=== PATIENT | male | born 1980 | race Caucasian/White ===

== ENCOUNTER 2016-02-25 09:21 | Emergency (ER) | payer OTHER ==
[~2016-02-25] VITALS: Ht 180.3 cm; Wt 74.8 kg
[~2016-02-25 09:21] MED LIST: ANTIBIOTIC O500 U/GM TP; BACTRIM DS 8001 TA1 PO; BENADRYL25 MG PO; CIPROFLOXACIN500 MG PO; CLEOCIN150 MG PO; CLINDAMYCIN HC300 MG PO; EES400 MG PO; FIORICET 325 MG1 TAB PO; FLEXERIL10 MG PO; HYDROCODONE BIT1 T11 PO; LITHIUM CARBON600 MG PO; LOVENOX30 MG/0.3; MEDROL DOSEPAK4 MG PO; NALTREXONE50 MG PO; NKHM; Orphenadrine C100 MG PO; PEPCID40 MG PO; SEPTRA DS 800 M1 TAB PO; SUBOXONE 8 MG-21 TA1 SL; TOBREX OPHTH S2.5 ML OPH; TRAMADOL HCL50 MG PO; TRIMOX500 MG PO; ULTRAM50 MG PO; VICODIN 5/500 505 MG PO; ZITHROMAX Z PA250 MG PO; ZOFRAN ODT4 MG SL; ZOFRAN4 MG PO; ZOLOFT50 MG PO
[2016-02-25 09:30] VITALS: BP 138/92
== END 2016-02-25 09:44 | disposition home or self-care (01) ==
LOC: ED 09:21
DX: S60.221A Contusion of right hand, initial encounter (principal); F17.200 Nicotine dependence, unspecified, uncomplicated; Z98.890 Other specified postprocedural states; Z88.6 Allergy status to analgesic agent; Z88.1 Allergy status to other antibiotic agents; Z88.8 Allergy status to other drugs, medicaments and biological substances; Z88.0 Allergy status to penicillin; Y04.0XXA Assault by unarmed brawl or fight, initial encounter; Y93.89 Activity, other specified; Y92.89 Other specified places as the place of occurrence of the external cause; Y99.9 Unspecified external cause status

== ENCOUNTER 2016-03-17 10:44 | Emergency (ER) | payer OTHER ==
[2016-03-17 10:47] VITALS: BP 138/80
[2016-03-17] MEDS ORDERED: ZITHROMAX250 MG PO (11:19)
[2016-03-17] MEDS ORDERED: ZYRTEC10 MG PO (11:19)
== END 2016-03-17 11:51 | disposition home or self-care (01) ==
LOC: ED 10:44
DX: J01.40 Acute pansinusitis, unspecified (principal); J02.9 Acute pharyngitis, unspecified; F17.200 Nicotine dependence, unspecified, uncomplicated; Z98.890 Other specified postprocedural states; Z88.0 Allergy status to penicillin; Z88.6 Allergy status to analgesic agent; Z88.1 Allergy status to other antibiotic agents; Z88.8 Allergy status to other drugs, medicaments and biological substances

== ENCOUNTER 2016-07-22 21:00 | Emergency (ER) | payer OTHER ==
[~2016-07-22] VITALS: Ht 180.3 cm; Wt 76.7 kg
[~2016-07-22 21:00] MED LIST changes: +ZITHROMAX250 MG PO; +ZYRTEC10 MG PO
[2016-07-22] MEDS ORDERED: BACTRIM DS 8001 TA1 PO (22:28)
[2016-07-23 00:11] VITALS: BP 136/84
== END 2016-07-23 00:54 | disposition home or self-care (01) ==
LOC: ED 21:00
DX: L03.116 Cellulitis of left lower limb (principal); F17.200 Nicotine dependence, unspecified, uncomplicated; Z79.899 Other long term (current) drug therapy; Z88.0 Allergy status to penicillin; Z88.6 Allergy status to analgesic agent; Z88.8 Allergy status to other drugs, medicaments and biological substances; Z88.1 Allergy status to other antibiotic agents

== ENCOUNTER 2016-11-05 19:14 | Emergency (ER) | payer SELFPAY ==
[~2016-11-05] VITALS: Ht 175.2 cm; Wt 70.3 kg
[2016-11-05 19:20] VITALS: BP 145/82
== END 2016-11-05 21:49 | disposition home or self-care (01) ==
LOC: ED 19:14
DX: S60.221A Contusion of right hand, initial encounter (principal); F17.200 Nicotine dependence, unspecified, uncomplicated; Z88.0 Allergy status to penicillin; Z88.6 Allergy status to analgesic agent; Z88.1 Allergy status to other antibiotic agents; Z88.8 Allergy status to other drugs, medicaments and biological substances; Y04.0XXA Assault by unarmed brawl or fight, initial encounter; Y93.89 Activity, other specified; Y92.89 Other specified places as the place of occurrence of the external cause; Y99.8 Other external cause status

== ENCOUNTER 2017-01-21 20:45 | Emergency (ER) | payer SELFPAY ==
[~2017-01-21] VITALS: Ht 175.2 cm; Wt 68.0 kg
[2017-01-21 21:02] VITALS: BP 135/108
== END 2017-01-21 22:45 | disposition home or self-care (01) ==
LOC: ED 20:45
DX: M23.91 Unspecified internal derangement of right knee (principal); F17.200 Nicotine dependence, unspecified, uncomplicated; Z98.890 Other specified postprocedural states; Z88.0 Allergy status to penicillin; Z88.6 Allergy status to analgesic agent; Z88.8 Allergy status to other drugs, medicaments and biological substances; Z88.1 Allergy status to other antibiotic agents; X58.XXXA Exposure to other specified factors, initial encounter; Y93.72 Activity, wrestling; Y92.89 Other specified places as the place of occurrence of the external cause; Y99.9 Unspecified external cause status

== ENCOUNTER 2017-08-07 10:20 | Emergency (ER) | payer OTHER ==
[~2017-08-07] VITALS: Ht 180.3 cm; Wt 63.5 kg
[2017-08-07 12:36] LABS: BASO % 0.4 % (0.0-1.0); EOS # 0.1 10*3/uL (0.0-0.4); EOS % 0.5 % (1.0-4.0); HEMATOCRIT 50.4 % (42.0-52.0); HEMOGLOBIN 16.8 g/dl (14.0-18.0); LYMPH # 1.7 10*3/uL (1.3-4.4); LYMPH % 17.2 % (27.0-41.0); MEAN CELL VOLUME 96.2 fl (80.0-94.0); MEAN CORPUSCULAR HGB 32.1 pg (27.0-31.0); MEAN CORPUSCULAR HGB CONC 33.3 g/dl (33.0-37.0); MEAN PLATELET VOLUME 11.5 fl (9.6-12.3); MONO # 0.7 10*3/uL (0.1-1.0); MONO % 7.5 % (3.0-9.0); NEUT # 7.2 10*3/uL (2.3-7.9); NEUT % 74.1 % (47.0-73.0); PLATELET COUNT AUTOMATED 154 10*3/uL (130-400); RED BLOOD COUNT 5.24 10*6/uL (4.50-5.90); RED CELL DISTRI WIDTH 12.1 % (0-14.5); WHITE BLOOD COUNT 9.7 10*3/uL (4.8-10.8)
[2017-08-07 12:54] LABS: ALBUMIN 4.2 gm/dl (3.1-4.5); ALKALINE PHOSPHATASE 132 U/L (45-117); BUN 9 mg/dl (7-24); CHLORIDE 106 mmol/L (98-107); CREATININE 0.86 mg/dL (0.70-1.30); SGOT/AST 170 IU/L (3-35); SGPT/ALT 205 U/L (12-78); SODIUM 141 mmol/L (136-145); TOTAL PROTEIN 8.4 gm/dL (6.4-8.2)
[2017-08-07 12:55] LABS: TROPONIN I < 0.015 ng/ml (<0.045)
[2017-08-07 14:21] VITALS: BP 118/89
[2017-08-07] MEDS ORDERED: ROBAXIN500 M1 PO ×2 (14:44→14:45)
== END 2017-08-07 14:43 ==
LOC: ED 10:20
PROVIDERS: Physician Assistant
DX: S13.8XXA Sprain of joints and ligaments of other parts of neck, initial encounter (principal); M54.6 Pain in thoracic spine; Z88.0 Allergy status to penicillin; Z88.6 Allergy status to analgesic agent; Z88.1 Allergy status to other antibiotic agents; Z88.8 Allergy status to other drugs, medicaments and biological substances; Z98.890 Other specified postprocedural states; W10.9XXA Fall (on) (from) unspecified stairs and steps, initial encounter; Y93.89 Activity, other specified; Y92.89 Other specified places as the place of occurrence of the external cause; Y99.9 Unspecified external cause status

== ENCOUNTER 2018-02-19 02:12 | Emergency (ER) | payer OTHER ==
[~2018-02-19] VITALS: Ht 180.3 cm; Wt 81.6 kg
[~2018-02-19 02:12] MED LIST changes: +ROBAXIN500 M1 PO
[2018-02-19 02:14] VITALS: BP 148/96
[2018-02-19] MEDS ORDERED: BUSPIRONE HCL15 MG PO (02:20)
== END 2018-02-19 03:14 | disposition home or self-care (01) ==
LOC: ED 02:12
DX: S60.221A Contusion of right hand, initial encounter (principal); Z88.0 Allergy status to penicillin; Z88.6 Allergy status to analgesic agent; Z88.1 Allergy status to other antibiotic agents; Z88.8 Allergy status to other drugs, medicaments and biological substances; W22.8XXA Striking against or struck by other objects, initial encounter; Y93.89 Activity, other specified; Y92.89 Other specified places as the place of occurrence of the external cause; Y99.8 Other external cause status

== ENCOUNTER 2018-02-24 11:16 | Emergency (ER) | payer OTHER ==
[~2018-02-24] VITALS: Ht 180.3 cm; Wt 77.1 kg
[~2018-02-24 11:16] MED LIST changes: +BUSPIRONE HCL15 MG PO
[2018-02-24 11:17] VITALS: BP 154/89
[2018-02-24 11:56] LABS: BILIRUBIN NEGATIVE (NEGATIVE); BLOOD NEGATIVE (NEGATIVE); CLARITY CLEAR (CLEAR); COLOR YELLOW (YELLOW); GLUCOSE NEGATIVE (NEGATIVE); KETONE NEGATIVE (NEGATIVE); LEUKO ESTERASE NEGATIVE (NEGATIVE); NITRITE NEGATIVE (NEGATIVE); UROBILINOGEN 0.2 E.U./dl (0.2-1.0)
[2018-02-24 12:15] LABS: EPITHELIAL CELLS 0-2; MUCOUS 1+; WBC 0-2 wbc/hpf (0-5)
[2018-02-24] MEDS ORDERED: ZITHROMAX250 MG PO (12:43)
== END 2018-02-24 12:57 | disposition home or self-care (01) ==
LOC: ED 11:16
PROVIDERS: Nurse Practitioner Family
DX: H66.91 Otitis media, unspecified, right ear (principal); H61.21 Impacted cerumen, right ear; Z11.3 Encounter for screening for infections with a predominantly sexual mode of transmission; R30.9 Painful micturition, unspecified; Z88.0 Allergy status to penicillin; Z88.6 Allergy status to analgesic agent; Z88.8 Allergy status to other drugs, medicaments and biological substances; Z88.1 Allergy status to other antibiotic agents; Z79.899 Other long term (current) drug therapy

== ENCOUNTER 2018-06-24 15:03 | Inpatient (IN) | payer SELFPAY ==
[~2018-06-24] VITALS: Ht 180.3 cm; Wt 66.9 kg
--- NOTE | ~2018-06-24 | EKG ---
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
[2018-06-24 15:04] VITALS: BP 158/98
[2018-06-24 15:41] LABS: BASO % 0.3 % (0.0-1.0); EOS # 0.1 10*3/uL (0.0-0.4); EOS % 0.6 % (1.0-4.0); HEMATOCRIT 44.9 % (42.0-52.0); HEMOGLOBIN 15.5 g/dl (14.0-18.0); LYMPH # 1.7 10*3/uL (1.3-4.4); LYMPH % 14.7 % (27.0-41.0); MEAN CELL VOLUME 94.7 fl (80.0-94.0); MEAN CORPUSCULAR HGB 32.7 pg (27.0-31.0); MEAN CORPUSCULAR HGB CONC 34.5 g/dl (33.0-37.0); MEAN PLATELET VOLUME 11.5 fl (9.6-12.3); MONO # 1.4 10*3/uL (0.1-1.0); MONO % 11.8 % (3.0-9.0); NEUT # 8.5 10*3/uL (2.3-7.9); NEUT % 72.4 % (47.0-73.0); PLATELET COUNT AUTOMATED 199 10*3/uL (130-400); RED BLOOD COUNT 4.74 10*6/uL (4.50-5.90); RED CELL DISTRI WIDTH 11.9 % (0-14.5); WHITE BLOOD COUNT 11.8 10*3/uL (4.8-10.8)
--- NOTE | 2018-06-24 15:51 | NUR ---
PT STATES FEELING ALOT BETTER AFTER ATIVAN.
[2018-06-24 16:32] LABS: INTERNATIONAL NORM RATIO 1.1 (2.0-3.5)
[2018-06-24 16:38] LABS: ALKALINE PHOSPHATASE 75 U/L (45-117); BUN 7 mg/dl (7-24); CHLORIDE 109 mmol/L (98-107); CREATININE 1.03 mg/dL (0.70-1.30); POTASSIUM 3.5 mmol/L (3.5-5.1); SGOT/AST 23 IU/L (3-35); SGPT/ALT 48 U/L (12-78); SODIUM 142 mmol/L (136-145); TOTAL PROTEIN 5.9 gm/dL (6.4-8.2)
[2018-06-24 16:42] LABS: ETHYL ALCOHOL < 3.0 mg/dl (<3); TROPONIN I < 0.015 ng/ml (<0.045)
--- NOTE | 2018-06-24 17:08 | NUR ---
NOTIFIED BY CT PT REFUSED CR SCAN. JODIE CONNOLLY NOTIFIED.
[2018-06-24 17:20] VITALS: BP 99/83
--- NOTE | 2018-06-24 17:20 | NUR ---
A 37, admitted to , under the services of DENNIS Mai DO with a diagnosis of ALCOHOL WITHDRAWAL. Chief complaint is C/O LEFT ANKLE SPRAIN. Patient arrived via bed from ER. Monitor applied. Initial assessment completed. Vital signs taken and recorded. DENNIS MAI DO notified of admission to the unit. Orders received. See assessment for past medical history, medications and allergies. Patient and/or family oriented to unit. [address] visitation policy reviewed. Clothing/patient valuable form completed. JOSE G PADILLA R
--- NOTE | 2018-06-24 18:49 | NUR ---
PATIENT SPIT OUT 25 MG CAPSULE OF LIBRIUM BUT SWALLOWED THE OTHER CAPSULE OF THE 50MG DOSE; HE WAKES UP BRIEFLY (STARTLES) AND FALLS BACK ASLEEP RAPIDLY.
[2018-06-24 20:00] VITALS: BP 132/82
--- NOTE | 2018-06-24 20:13 | NUR ---
PATIENT RESTING IN BED. ARROUSES TO VERBAL STIMULI. WILL ONLY OPEN EYES BREIFLY BEFORE FALLING BACK TO SLEEP. REFUSING TO URINATE FOR URINE SAMPLE AT THIS TIME. TREMORS NOTED. WILL MONITOR. BED ALARM ON, BED IN LOWEST POSITION, CALL LIGHT IN REACH
--- NOTE | 2018-06-24 22:45 | NUR ---
MEDICATED WITH PRN ATIVAN FOR TREMORS AND AGITATION. WILL MONITOR
--- NOTE | 2018-06-24 22:48 | NUR ---
PATIENT STATES HE STILL DOES NOT HAVE TO PEE. MADE AWARE THAT WE NEED URINE WHEN HE IS ABLE.
[2018-06-25] VITALS: BP 140/84
--- NOTE | 2018-06-25 00:33 | NUR ---
PATIENT ATTEMPTED TO GET OUT OF BED. PATIENT DISORIENTED. STATES HE IS SEEING THINGS. CANNOT DESCRIBE WHAT HE IS SEEING. LIBRIUM GIVEN AT THIS TIME PER ORDER. TREMORS NOTED. BED ALARM ON, CALL LIGHT IN REACH
--- NOTE | 2018-06-25 00:41 | NUR ---
DR TERRY AWARE OF PATIENT HALLUCINATING
--- NOTE | 2018-06-25 01:37 | NUR ---
24 HR chart check completed.
--- NOTE | 2018-06-25 02:44 | NUR ---
PATIENT SET BED ALARM OFF. STATES HE IS STILL SEEING THINGS BUT CANNOT TELL THIS RN WHAT. DR TERRY AT BEDSIDE AND AWARE. PATIENT STANDING UP TO BEDSIDE TO URINATE. UNSTEADY GAIT. SPEECH GARBLED. PATIENT CAN ONLY KEEP HIS EYES OPEN BREIFLY. TREMORS NOTED. PATIENT REFUSING TO PUT FEET IN THE BED DESPITE EDUCATIONS ON IMPORTANCE SO PATIENT DOES NOT FALL. PATIENT SITTING ON SIDE OF THE BED ROCKING BACK AND FORTH. PATIENT CHEWING THE AIR THINKING HE IS EATING CHIPS. BED ALARM ON, BED IN LOWEST POSITION, CALL LIGHT IN REACH
--- NOTE | 2018-06-25 02:53 | NUR ---
MEDICATED WITH PRN ATIVAN FOR TREMORS AND ANXIOUSNESS. WILL MONITOR. BED ALARM ON, BED IN LOWEST POSITION, CALL LIGHT IN REACH
[2018-06-25 02:54] LABS: BILIRUBIN NEGATIVE (NEGATIVE); BLOOD NEGATIVE (NEGATIVE); CLARITY SL CLOUDY (CLEAR); COLOR YELLOW (YELLOW); GLUCOSE NEGATIVE (NEGATIVE); KETONE NEGATIVE (NEGATIVE); LEUKO ESTERASE NEGATIVE (NEGATIVE); NITRITE NEGATIVE (NEGATIVE); PH 7.5 (5.0-9.0)
[2018-06-25 03:03] LABS: URINE AMPHETAMINES > 1000 (1000ng/ml); URINE BARBITURATES < 200 (200ng/ml); URINE BENZODIAZEPINES < 200 (200ng/ml); URINE CANNABINOIDS (THC) < 50 (50ng/ml); URINE COCAINE > 300 (300ng/ml); URINE METHADONE < 300 (300ng/ml); URINE OPIATES < 300 (300ng/ml)
[2018-06-25 03:04] LABS: URINE PHENCYCLIDINE < 25 (25ng/ml)
[2018-06-25 04:00] VITALS: BP 132/89
--- NOTE | 2018-06-25 05:50 | NUR ---
ATTEMPTED TO GIVE PATIENT SCHEDULED LIBRIUM. PATIENT YELLED "NO" AND REFUSES TO OPEN HIS MOUTH. PATIENT EDUCATED ON IMPORTANCE OF TAKING MEDICATION. PATIENT CONTINUES TO REFUSE TO OPEN MOUTH. DR TERRY MADE AWARE.
[2018-06-25 06:00] LABS: BASO % 0.3 % (0.0-1.0); EOS # 0.1 10*3/uL (0.0-0.4); EOS % 1.3 % (1.0-4.0); HEMATOCRIT 44.2 % (42.0-52.0); LYMPH # 1.9 10*3/uL (1.3-4.4); LYMPH % 18.7 % (27.0-41.0); MEAN CELL VOLUME 95.9 fl (80.0-94.0); MEAN CORPUSCULAR HGB 32.5 pg (27.0-31.0); MEAN CORPUSCULAR HGB CONC 33.9 g/dl (33.0-37.0); MEAN PLATELET VOLUME 11.7 fl (9.6-12.3); MONO # 1.3 10*3/uL (0.1-1.0); MONO % 12.8 % (3.0-9.0); NEUT # 6.8 10*3/uL (2.3-7.9); NEUT % 66.7 % (47.0-73.0); PLATELET COUNT AUTOMATED 143 10*3/uL (130-400); RED BLOOD COUNT 4.61 10*6/uL (4.50-5.90); RED CELL DISTRI WIDTH 11.9 % (0-14.5); WHITE BLOOD COUNT 10.1 10*3/uL (4.8-10.8)
[2018-06-25 06:25] LABS: BUN 5 mg/dl (7-24); CHLORIDE 109 mmol/L (98-107); POTASSIUM 3.7 mmol/L (3.5-5.1); SGOT/AST 34 IU/L (3-35); SGPT/ALT 54 U/L (12-78); SODIUM 140 mmol/L (136-145)
[2018-06-25 06:27] LABS: ALKALINE PHOSPHATASE 71 U/L (45-117); CREATININE 0.86 mg/dL (0.70-1.30); PHOSPHOROUS 3.3 mg/dL (2.5-4.9); TOTAL PROTEIN 6.4 gm/dL (6.4-8.2)
--- NOTE | 2018-06-25 08:21 | NUR ---
AWAKE, COMPLAINING OF BACK PAIN "FROM THE BED". COOPERATIVE WITH CARE AT THIS TIME. NSR 90s PER CM. CALL LIGHT IN REACH. BED ALARM ON. WILL CONTINUE TO MONITOR.
[2018-06-25 08:22] VITALS: BP 118/64
--- NOTE | 2018-06-25 08:45 | NUR ---
LIBRIUM GIVEN PER ORDERS FROM DUE TO REFUSAL EARLY THIS AM. WILL MONITOR. PT TOLERATED WELL. CALL LIGHT IN REACH. ORDERING BREAKFAST AT THIS TIME. BED ALARM ON.
[2018-06-25 10:15] LABS: VITAMIN D, 25-HYDROXY 22.5 ng/mL (30-100)
[2018-06-25 12:00] VITALS: BP 121/91
--- NOTE | 2018-06-25 14:26 | NUR ---
PT OFF THE MONITOR AND REQUESTING TO TAKE A SHOWER. PUT BACK ON CM, HR UP TO 130s WITH EXERTION. NOTIFIED OF REQUEST. TALKED WITH PT AND RECOMMENDED TO WAIT UNTIL HIS HR WAS UNDER BETTER CONTROL. PT REFUSED, AND STILL REQUESTING TO SHOWER DUE TO "OCD/GERMS". PT REMOED MONITOR AND REQUESTED TO SHOWER AGAIN. PT BECOMING SLIGHTLY AGITATED. WILL MONITOR.
--- NOTE | 2018-06-25 14:31 | NUR ---
Patient escorted to shower room by wheelchair, without incident. Patient will call when assistance is needed and was insistent on getting a shower unmonitored.
--- NOTE | 2018-06-25 14:55 | NUR ---
PATIENT FINISHED WITH SHOWERING AND REQUESTED ASSISTANCE GETTING BACK TO BED. PATIENT RETURNED TO BED WITHOUT INCIDENCE AND WATER REGISTRAR WAS PLACED ON PATIENT. ENCOURAGED PATIENT TO PRESS CALL LIGHT FOR ASSISTANCE.
--- NOTE | 2018-06-25 15:13 | NUR ---
BACK TO BED FOLLOWING SHOWER WITHOUT INCIDENT. HR MONITOR ON, ST 111. CALL LIGHT IN REACH. BED ALARM ON.
--- NOTE | 2018-06-25 16:22 | NUR ---
CALLED TO PTs ROOM. PT TO LEAVE AMA. NOTIFIED AND CAME DOWN TO PTs ROOM TO DISCUSS. PT STILL TO LEAVE AMA. IV REMOVED, HEART MONITOR COLLECTED. AMA PAPERWORK SIGNED. NURSING DIRECTOR CARDIAC NOTIFIED.
--- NOTE | 2018-06-25 16:54 | NUR ---
Patient signed out AMA. Patient encouraged to stay and advised of possible consequences of premature discharge. Physician and blueprinting and photocopy supervisor ONEAL notified. Patient instructed what to do regarding care post-departure from the hospital; emergency phone numbers provided. Patent was accompanied by AUNTFERNIE CATHERINE
== END 2018-06-25 16:54 | disposition left against medical advice (07) | DRG 894 ==
LOC: ED 15:03 → EDHOLD 16:26 → 4E 16:26
PROVIDERS: Internal Medicine; Physician Assistant; ADMIT Internal Medicine
DX: F10.239 Alcohol dependence with withdrawal, unspecified (principal); E44.0 Moderate protein-calorie malnutrition; E87.8 Other disorders of electrolyte and fluid balance, not elsewhere classified; S90.02XA Contusion of left ankle, initial encounter; R00.0 Tachycardia, unspecified; F31.9 Bipolar disorder, unspecified; R73.9 Hyperglycemia, unspecified; F17.210 Nicotine dependence, cigarettes, uncomplicated; R51 Headache; Z53.21 Procedure and treatment not carried out due to patient leaving prior to being seen by health care provider; H53.8 Other visual disturbances; W18.30XA Fall on same level, unspecified, initial encounter; Y93.89 Activity, other specified; Y92.89 Other specified places as the place of occurrence of the external cause; Y99.8 Other external cause status; Z88.0 Allergy status to penicillin; Z88.2 Allergy status to sulfonamides; Z88.8 Allergy status to other drugs, medicaments and biological substances; Z88.1 Allergy status to other antibiotic agents; Z88.6 Allergy status to analgesic agent; Z80.8 Family history of malignant neoplasm of other organs or systems; Z82.5 Family history of asthma and other chronic lower respiratory diseases; Z86.73 Personal history of transient ischemic attack (TIA), and cerebral infarction without residual deficits; Z68.20 Body mass index [BMI] 20.0-20.9, adult

== ENCOUNTER 2018-09-17 22:20 | Emergency (ER) | payer SELFPAY ==
[~2018-09-17] VITALS: Ht 182.8 cm; Wt 65.8 kg
--- NOTE | ~2018-09-17 | EKG ---
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
[2018-09-17 22:27] VITALS: BP 122/91
[2018-09-17 22:44] LABS: BASO % 0.3 % (0.0-1.0); EOS # 0.1 10*3/uL (0.0-0.4); EOS % 0.9 % (1.0-4.0); HEMATOCRIT 40.6 % (42.0-52.0); HEMOGLOBIN 13.6 g/dl (14.0-18.0); LYMPH % 18.1 % (27.0-41.0); MEAN CELL VOLUME 92.9 fl (80.0-94.0); MEAN CORPUSCULAR HGB 31.1 pg (27.0-31.0); MEAN CORPUSCULAR HGB CONC 33.5 g/dl (33.0-37.0); MEAN PLATELET VOLUME 10.9 fl (9.6-12.3); MONO # 0.8 10*3/uL (0.1-1.0); MONO % 7.5 % (3.0-9.0); NEUT # 8.1 10*3/uL (2.3-7.9); NEUT % 72.8 % (47.0-73.0); PLATELET COUNT AUTOMATED 172 10*3/uL (130-400); RED BLOOD COUNT 4.37 10*6/uL (4.50-5.90); RED CELL DISTRI WIDTH 12.5 % (0-14.5); WHITE BLOOD COUNT 11.1 10*3/uL (4.8-10.8)
[2018-09-17 22:57] LABS: ACT PARTIAL THROMBO TIME 29.7 SECONDS (20.0-32.1)
[2018-09-17 23:01] LABS: ALBUMIN 3.4 gm/dl (3.1-4.5); ALKALINE PHOSPHATASE 92 U/L (45-117); BUN 10 mg/dl (7-24); CHLORIDE 103 mmol/L (98-107); POTASSIUM 3.5 mmol/L (3.5-5.1); SGOT/AST 31 IU/L (3-35); SGPT/ALT 43 U/L (12-78); SODIUM 135 mmol/L (136-145)
[2018-09-17 23:04] LABS: TROPONIN I < 0.015 ng/ml (<0.045)
[2018-09-18] MEDS ORDERED: CLINDAMYCIN HC300 MG PO (01:14)
== END 2018-09-18 02:00 | disposition home or self-care (01) ==
LOC: ED 22:20
PROVIDERS: Student in an Organized Health Care Education/Training Program
DX: L03.115 Cellulitis of right lower limb (principal); R07.9 Chest pain, unspecified; F12.10 Cannabis abuse, uncomplicated; F17.210 Nicotine dependence, cigarettes, uncomplicated; Z88.0 Allergy status to penicillin; Z88.6 Allergy status to analgesic agent; Z88.8 Allergy status to other drugs, medicaments and biological substances; Z88.1 Allergy status to other antibiotic agents; Z86.73 Personal history of transient ischemic attack (TIA), and cerebral infarction without residual deficits

== ENCOUNTER 2019-01-27 13:38 | Inpatient (IN) | payer MEDICAID ==
[~2019-01-27] VITALS: Ht 180.3 cm; Wt 68.6 kg
[2019-01-27 13:38] VITALS: BP 96/62
--- NOTE | 2019-01-27 13:45 | NUR ---
PT REFUSES TO DISROBE.
--- NOTE | 2019-01-27 14:15 | NUR ---
ALTHOUGH PT ALLOWED IV IONSERTED AND TWO BLOOD DRAWS FORM HIS FOOT, HE REFUSED A FOURTH BLOODDRAW ANYWHERE FOR THE SECOND BLOOD CULTUIRE, STATING ":I WON;T BE A PINCUSHION...I HAVE NO VEINS....NO MORE STICKS!". PT IS ALSO REFUSING THE ULTRASOUND BECAUSE OF THE PAIN INVOLVED IN HAVING THE PROBE TOUCH HIS LEG.
[2019-01-27 14:40] LABS: HEMATOCRIT 38.6 % (42.0-52.0); MEAN CELL VOLUME 93.2 fl (80.0-94.0); MEAN CORPUSCULAR HGB 31.4 pg (27.0-31.0); MEAN CORPUSCULAR HGB CONC 33.7 g/dl (33.0-37.0); MEAN PLATELET VOLUME 10.8 fl (9.6-12.3); PLATELET COUNT AUTOMATED 195 10*3/uL (130-400); RED BLOOD COUNT 4.14 10*6/uL (4.50-5.90); RED CELL DISTRI WIDTH 13.8 % (0-14.5); WHITE BLOOD COUNT 12.7 10*3/uL (4.8-10.8)
[2019-01-27 14:56] LABS: ALBUMIN 3.2 gm/dl (3.1-4.5); ALKALINE PHOSPHATASE 79 U/L (45-117); BUN 9 mg/dl (7-24); CHLORIDE 110 mmol/L (98-107); CREATININE 0.75 mg/dL (0.70-1.30); LIPASE 112 U/L (73-393); POTASSIUM 3.8 mmol/L (3.5-5.1); SGOT/AST 25 IU/L (3-35); SGPT/ALT 58 U/L (12-78); SODIUM 138 mmol/L (136-145); TOTAL PROTEIN 6.9 gm/dL (6.4-8.2)
[2019-01-27 14:58] LABS: TROPONIN I < 0.015 ng/ml (<0.045)
[2019-01-27 14:59] LABS: TOTAL CELLS COUNTED 100 #CELLS
[2019-01-27 15:00] LABS: PLATELET SUFFICIENCY NORMAL (NORMAL)
[2019-01-27 15:55] VITALS: BP 98/60
--- NOTE | 2019-01-27 16:32 | NUR ---
PT WILL NOW ALLOW THE ULTRASOUND BUT PERSISTS IN REFUSAL OF MORE ATTEMPTS TO DRAW BLOOD.
--- NOTE | 2019-01-27 16:39 | NUR ---
PT HAS BEEN UNABLE OR UNWILLING TO PROVIDE A URINE SPECIMEN DESPITE SEVERAL REQUESTS FROM ME. ORDER CANCELLED AND RESCHEDULED.
[2019-01-27 16:55] VITALS: BP 115/71
--- NOTE | 2019-01-27 16:55 | NUR ---
A 38, admitted to 5E, under the services of DENNIS Mai DO with a diagnosis of CELLULITIS. Chief complaint is PAIN, NAUSEA, CHILLS. Patient arrived via stretcher from ER. Monitor applied. Initial assessment completed. Vital signs taken and recorded. DENNIS MAI DO notified of admission to the unit. Orders received. See assessment for past medical history, medications and allergies. Patient and/or family oriented to unit. [address] visitation policy reviewed. Clothing/patient valuable form completed. ALEJANDRO RIVERA
[2019-01-27] MEDS ORDERED: PLAVIX75 M1 PO (18:28)
--- NOTE | 2019-01-27 18:51 | NUR ---
DR MARAVILLA NOTIFIED OF CONSULT.
--- NOTE | 2019-01-27 18:54 | NUR ---
DR PAMELA GAMING FOR CONSULT.
[2019-01-27 19:16] LABS: BILIRUBIN NEGATIVE (NEGATIVE); BLOOD NEGATIVE (NEGATIVE); CLARITY CLEAR (CLEAR); COLOR YELLOW (YELLOW); GLUCOSE NEGATIVE (NEGATIVE); KETONE NEGATIVE (NEGATIVE); LEUKO ESTERASE NEGATIVE (NEGATIVE); NITRITE NEGATIVE (NEGATIVE); SPECIFIC GRAVITY 1.025 (1.005-1.030); UROBILINOGEN 0.2 E.U./dl (0.2-1.0)
[2019-01-27 19:32] LABS: BACTERIA TRACE; EPITHELIAL CELLS 0-2; MUCOUS 1+; WBC 0-2 wbc/hpf (0-5)
[2019-01-27 19:39] LABS: URINE AMPHETAMINES > 1000 (1000ng/ml); URINE BARBITURATES < 200 (200ng/ml); URINE BENZODIAZEPINES < 200 (200ng/ml); URINE CANNABINOIDS (THC) > 50 (50ng/ml); URINE COCAINE > 300 (300ng/ml); URINE METHADONE < 300 (300ng/ml); URINE OPIATES < 300 (300ng/ml)
[2019-01-27 19:40] LABS: URINE PHENCYCLIDINE < 25 (25ng/ml)
--- NOTE | 2019-01-27 19:58 | NUR ---
INFORMED THAT URINE TOX WAS POSITIVE FOR AMP/THC/COCAINE. INFORMED THAT THERE IS NO SIGNED DNR-CCA AT THIS TIME AND PATIENT IS REQUESTING TO BE SO. STATED OK
[2019-01-27 20:00] VITALS: BP 117/72
--- NOTE | 2019-01-27 21:37 | NUR ---
PATIENT MEDICATED WITH RESTORIL AND TYLENOL FOR C/O INSOMNIA AND PAIN RIGHT GUARDADO 07/28. WILL MONITOR
--- NOTE | 2019-01-27 22:37 | NUR ---
RESTORIL AND TYLENOL APPEARS EFFECTIVE. PATIENT IS RESTING QUIELTY IN BED, EYES CLOSED. NO DISTRESS NOTED. CALL LIGHT WITHIN REACH
[2019-01-28] VITALS: BP 102/58
--- NOTE | 2019-01-28 03:08 | NUR ---
ATTEMPT TO FLUSH L ANKLE IV AFTER ATB. PATIENT WOKE FROM SLEEP AND YELLED IN PAIN. INFORMED THAT SITE WAS MORE LUMA LIKELY INFILTRATED AND I NEED TO TURN ON THE LIGHT TO SEE. PATIENT STATED, "YINKA BANERJEE. FUCK THIS SHIT, YOU'RE JUST PUSHING TOO FAST AND IT WAS HURTING BEFORE." INFORMED THAT LITTLE TO NO FLUID WAS ADMINISTERED TO FLUSH LINE AND I NEEDED TO SEE IF IT WAS RED/SWELLING. PATIENT STATED, "NO. I DON'T WANT THE LIGHT ON." PULLED HIS BLANKET OVER HIS HEAD AND MOVE FOOT AWAY FROM THIS NURSE. THIS NURSE LEFT ROOM TO NOT ESCALATE SITUATION. WILL INFORM DOCTOR.
--- NOTE | 2019-01-28 03:23 | NUR ---
MADE AWARE OF SITUATION WITH IV STATUS. STATED OK, NOT TO MESS WITH AT THIS TIME.
--- NOTE | 2019-01-28 05:45 | NUR ---
PRESENT MADE AWARE THAT PATIENT IS UPSET AT THIS TIME, REFUSING TYLENOL FOR HIS PAIN, STATED, "I NEED SOMETHING STRONGER, IF I HAVE TO ILL LEAVE AND GET WHAT I NEED." PLACED A ONE TIME ORDER FOR [place].
--- NOTE | 2019-01-28 05:57 | NUR ---
MADE AWARE THAT PATIENT IS REFUSING HIS MORNING LAB WORK. STATED OK.
[2019-01-28 08:00] VITALS: BP 111/67
--- NOTE | 2019-01-28 08:00 | NUR ---
Patient resting quietly with no c/o discomfort. Respirations easy and regular. Vital signs stable. No overt distress. LEFT ANKLE IV PATENT BUT TENDER. PT REFUSING ANY FURTHER TX REQUIRING A NEEDLE STICK, IE LABS, LOVENOX. ALEJANDRO RIVERA
--- NOTE | 2019-01-28 09:09 | NUR ---
MEDICATED WITH PO TYLENOL ORDERED PER PT REQUEST FOR C/O HEADACHE.
--- NOTE | 2019-01-28 10:51 | NUR ---
MEDICATED WITH IV ZOFRAN ORDERED PER PT REQUEST FOR C/O NAUSEA.
[2019-01-28 12:00] VITALS: BP 113/69
--- NOTE | 2019-01-28 12:00 | NUR ---
MEDICATIONS EFFECTIVE FOR NAUSEA AND HEADACHE.
--- NOTE | 2019-01-28 12:00 | NUR ---
DR MARAVILLA IN TO SEE PT STATING NO CURRENT INTERVENTIONS NEEDED.
--- NOTE | 2019-01-28 13:32 | NUR ---
Laminated Plastics Assembler And Gluer in to talk to patient. Patient states lives at HOME with GIRLFRIEND. There are COUPLE steps in the home. Physician: NONE Pharmacy: [facility] Home health services: NONE Patient's level of ADLs: INDEPENDENT Patient has working utilities: YES DME: NONE Follow-up physician's appointment after d/c: WILL FIND ONE AND MAKE APPOINTMENT AFTER DISCHARGE Does patient want to access PORTAL?: NO Discharge plan PT STATES HE LIVES AT HOME WITH HIS GIRLFRIEND AND IS INDEPENDENT IN HIS ARE. PLANS TO RETURN HOME WHEN MEDICALLY STABLE. WILL CONTINUE TO FOLLOW. STATES HE WILL HAVE A RIDE HOME. LUKASZ WATSON
--- NOTE | 2019-01-28 15:00 | NUR ---
DR SANTIAGO CALLED IN STATING CURRENT TX OK.
[2019-01-28 16:00] VITALS: BP 129/69
--- NOTE | 2019-01-28 16:32 | NUR ---
MEDICATED WITH PO TYLENOL ORDERED PER PT REQUEST FOR C/O PAIN TO LLE AT IV SITE RATED 5/10 WHILE ANTIBIOTICS INFUSING. SITE REMAINS PATENT.
--- NOTE | 2019-01-28 17:08 | NUR ---
MEDICATED WITH IV ZOFRAN ORDERED PER PT REQUEST FOR NAUSEA.
--- NOTE | 2019-01-28 18:42 | NUR ---
MEDICATION EFFECTIVE FOR PAIN/NAUSEA.
[2019-01-28 20:00] VITALS: BP 124/72
--- NOTE | 2019-01-28 21:30 | NUR ---
SPOKE WITH DR. SANTIAGO AT THIS TIME. EXPLAINED TO HER THAT WE LOST PATIENTS IV SITE, BUT JUST GOT A NEW ONE, BUT PATIENT WAS REFUSING TO BE RESTUCK IT IS A TRIGGER FOR HIM TO USE AGAIN. ASKED HER IF SHE HAD ANY PO MEDICATIONS SHE RECOMMENED IN THE MIDDLE OF THE NIGHT IN CASE WE WERE TO LOSE THE IV SITE AGAIN. SHE STATED SHE DIDN'T GET A CHANCE TO SEE THE PATIENT TODAY BUT SHE WILL BE SEEING THE PATIENT TOMORROW, BUT IF WE LOSE THE IV SITE SHE IS OK WITH HIM MISSING A DOSE OF IV MEDICATION. SHE WOULD LIKE TO KEEP THE IV ANTIBIOTIC INSTEAD OF DO PO
--- NOTE | 2019-01-28 22:08 | NUR ---
PRN RESTORIL AND TYLENOL GIVEN FOR PT COMPLAINTS OF SLEEPLESSNESS AND A HEADACHE. CALL LIGHT WITHIN REACH, WILL MONITOR
[2019-01-29] VITALS: BP 120/79
--- NOTE | 2019-01-29 04:18 | NUR ---
PT YELLING AND SCREAMING. STATES HE IS IN PAIN. CUSSING AT THIS NURSE. NOTIFIED DR. TERRY. ORDER RECIEVED FOR 30MG OF IV TORADOL
--- NOTE | 2019-01-29 04:53 | NUR ---
GAVE TORADOL PER PATIENT REQUEST FOR COMPLAINTS OF LEG PAIN. PATIENT STARTED TO YELL PROFANITIES AT ME DURING ADMINISTRATION OF MEDICATION. PATIENT STATED IT HAD STARTED TO BURN. FLUSHED THE PATIENT'S IV WITH NORMAL SALINE AND HE STATED THAT THE NORMAL SALINE WAS NOT BURNING, HOWEVER; PATIENT CONTINUED TO YELL AND CURSE. MADE SURE CALL LIGHT WAS IN REACH AND EXITED THE ROOM.
--- NOTE | 2019-01-29 07:33 | NUR ---
ATTEMPTED TO CALL DR. LOERA TO NOTIFY OF PATIENT REFUSING LABS AND TO DISCUSS VANCO. DR. GAONA ANSWERED AND STATED HE WOULD HAVE DR. LOERA CALL BACK
--- NOTE | 2019-01-29 07:56 | NUR ---
Notified Dr. Lopez resident with Dr. Almodovar that pt had refused labs this am including vanco trough. Asked if they wanted vanco to still be given. States she will discuss with Dr. Almodovar and let me know.
[2019-01-29 08:00] VITALS: BP 134/65
--- NOTE | 2019-01-29 08:20 | NUR ---
Dr. Lopez states to hold vanco dose at this time.
--- NOTE | 2019-01-29 10:54 | NUR ---
Medicated with percocet per prn order for complaints of pain to rt thompson.
--- NOTE | 2019-01-29 11:40 | NUR ---
Pt states that percocet was somewhat effective for pain relief.
[2019-01-29 12:00] VITALS: BP 122/76
--- NOTE | 2019-01-29 15:01 | NUR ---
PT STATES HE WILL GO HOME AND WILL HAVE NO NEW NEEDS AT THIS TIME. WILL CONTINUE TO FOLLOW.
[2019-01-29 16:00] VITALS: BP 112/64
--- NOTE | 2019-01-29 17:30 | NUR ---
DR. MARAVILLA IN TO SEE PT.
[2019-01-29 20:00] VITALS: BP 113/76
--- NOTE | 2019-01-29 22:27 | NUR ---
PT STATES THAT HIS LEG ISN'T FEELING ANY BETTER AND IS FEELING WORSE. HE STATED "IF THAT SURGEON DOESN'T DO ANYTHING ABOUT THIS LEG TOMORROW, I'LL CUT IT OPEN MY DAMN SELF. HE DOESN'T WANT TO DO ANYTHING TO IT" ENCOURAGED PATIENT TO NOT DRAIN THE AREA HIMSELF. PATIENT STATED "WELL SOMETHING NEEDS TO BE DONE ABOUT IT AND NOTHING IS BEING DONE NOW". WILL CONTINUE TO MONITOR
--- NOTE | 2019-01-29 23:40 | NUR ---
PRN RESTORIL AND PERCOCET GIVEN FOR PT COMPLAINTS OF 10/10 PAIN, AND SLEEPLESSNESS. CALL LIGHT WITHIN REACH, WILL MONITOR
[2019-01-30] VITALS: BP 100/60
--- NOTE | 2019-01-30 02:50 | NUR ---
PATIENT IN ROOM YELLING. STATED THAT HE BASHED HIS GUARDADO WHERE THE CELLULITIS IS OFF THE BEDSIDE STAND. SKIN TEAR NOTED TO RIGHT GUARDADO NOW. SMALL AMOUNT OF CLEAR DRAINAGE NOTED.
--- NOTE | 2019-01-30 03:42 | NUR ---
GENERAL WAREHOUSE ASSOCIATE MADE AWARE OF PATIENTS NEW SKIN TEAR
--- NOTE | 2019-01-30 03:45 | NUR ---
NOTIFIED DR. CHARLES OF PATIENTS SKIN TEAR
--- NOTE | 2019-01-30 04:30 | NUR ---
WHEN FLUSHING PATIENTS IV, PATIENT PROCEDED TO TELL NURSE WHAT HIS LEG "LOOKED LIKE BEFORE I WAS ADMITTED". HE STATED THAT THE REDNESS AND SWELLING WAS AT THE BOTTOM OF HIS LEG AND IT IS MOVING UPWARDS. WHILE LOOKING AT IT LONGER, THE PATIENT SAID "NO WAIT, THESE PICTURES ARE FROM WHEN I WAS HERE IN LIKE OR SOMETHING, BUT THIS IS WHAT IT LOOKED LIKE TOO ON ADMISSION THIS TIME."
--- NOTE | 2019-01-30 06:32 | NUR ---
LIZ DEL TORO [id number] Please refer to the physician's history and physical for past medical history, comorbid conditions, and allergies. Diagnosis: CELLULITIS Martin Score: 23,LOW OR NO RISK WOUND DESCRIPTIONS: Wound Number: 1 Location of the wound: Right thompson Type of wound: partial Thickness: Partial Size: 0.6cm x 0.6cm x 0.1cm Tunneling: none Undermining: none Sinus Tract: none Presence of Exudate: none Amount: None Color: Red Odor: None Periwound Skin Appearance: Erythema 10.0cm x 7.5cm x <0.1cm Wound edges: approximated Pain (associated with wound): tender to touch How does patient state this happened? pt stated [facility] out of [facility] January 19 and on January 21 it starting hurting he stated that he was in a cell that holds 12 people but was actually holding 16 while he was there and had people sleeping on the floor. This nurse asked after evaluation of his chart if he will agree to blood work and he states that will likely put him in relapse because he gets the high off of the flash after injecting not the actual drug. He states he watches people everyday and this isn't the life that he wants. The only way he will agree to blood work is with ultrasound so he isn't poke multiple times. Surface the patient is resting on: Isoflex SKIN PREVENTION RECOMMENDATION: 1. Pressure redistribution support surface as appropriate 2. Elevate heels 3. Remove boots/TEDS every shift and reapply 4. Head of bed 30 degrees as tolerated 5. Assess nutrition and hydration 6. Manage moisture 7. Avoid the use of containment devices while in bed 8. Use absorptive products on surfaces limit layers of linens on bed 9. Turn and reposition every 1-2 hours in bed and every 1 hour in chair as tolerated 10. Weight shifts every 15 minutes while up in chair 11. Offloading with pillows or device to keep heels elevated off bed 12. Monitor skin at least every shift 13. Inspect under medical devices twice a day WOUND TREATMENT RECOMMENDATIONS: and ID is already on consult for area to right thompson. Repeat imaging studies to see if area is worsening since patient is stating such Repeat lab work since patient refused past two days to compare to his baseline from admission. Skintear guidelines: cleanse right thompson with nss and apply sureprep around the wound hydrogel to wound bed and cover with dsd daily and prn for soiling
--- NOTE | 2019-01-30 07:35 | NUR ---
Pt refused vitals this am.
[2019-01-30 07:41] LABS: HEMATOCRIT 41.8 % (42.0-52.0); HEMOGLOBIN 14.2 g/dl (14.0-18.0); MEAN CELL VOLUME 91.5 fl (80.0-94.0); MEAN CORPUSCULAR HGB 31.1 pg (27.0-31.0); MEAN PLATELET VOLUME 10.9 fl (9.6-12.3); PLATELET COUNT AUTOMATED 278 10*3/uL (130-400); RED BLOOD COUNT 4.57 10*6/uL (4.50-5.90); RED CELL DISTRI WIDTH 13.5 % (0-14.5); WHITE BLOOD COUNT 12.5 10*3/uL (4.8-10.8)
--- NOTE | 2019-01-30 07:49 | NUR ---
Medicated with percocet per prn order for complaints of pain to rt thompson. Pt states to me that if no one does anything about the thing on his leg he is going to [place] it himself.
[2019-01-30 07:54] LABS: BUN 10 mg/dl (7-24); CHLORIDE 107 mmol/L (98-107); CREATININE 0.86 mg/dL (0.70-1.30); POTASSIUM 4.3 mmol/L (3.5-5.1); SODIUM 138 mmol/L (136-145)
--- NOTE | 2019-01-30 07:58 | NUR ---
Medicated with zofran per prn order for complaints of nausea.
[2019-01-30 08:08] LABS: PLATELET SUFFICIENCY NORMAL (NORMAL); TOTAL CELLS COUNTED 100 #CELLS
--- NOTE | 2019-01-30 09:00 | NUR ---
States that medication only helped somewhat for pain and nausea.
--- NOTE | 2019-01-30 11:40 | NUR ---
Nutritional Support Services Note: Appetite is good for meals. Regular diet as ordered. Cellulitis noted to right thompson and skin tear noted. He is eating well. Refused a supplement. Will provide a night snack to help increase kcal. Will follow as needed. Isabela Tinoco Rdn Ld
[2019-01-30 12:00] VITALS: BP 99/63
--- NOTE | 2019-01-30 13:42 | NUR ---
Taken off floor for MRI.
--- NOTE | 2019-01-30 15:01 | NUR ---
PT IS FOR OR TOMORROW WITH PODITARY. WILL CONTINUE TO FOLLOW.
--- NOTE | 2019-01-30 15:04 | NUR ---
PT MEDICATED WITH PERCOCET FOR COMPLAINTS OF RLE PAIN 10/28. WILL MONITOR FOR EFFECTIVENESS.
[2019-01-30 16:00] VITALS: BP 100/49
--- NOTE | 2019-01-30 17:45 | NUR ---
Dietary called and states that pt is calling to order food. Explained again to pt that he is NPO for OR. Pt states that is crazy and he will just go home and pop the thing himself. I replyed that was up to him but it wasn't a good idea. I stated if he was going to leave he would have to sign AMA paper. He states bring the paper. Visitor in room. I notified surgery that pt wants to leave ama.
--- NOTE | 2019-01-30 17:48 | NUR ---
AMA taken to pt and he signed it, started to remove iv. Sterile dressing applied. Notified Gay in surgery that pt is leaving AMA.
--- NOTE | 2019-01-30 17:50 | NUR ---
Notified Dr. Lopez that pt is leaving AMA.
--- NOTE | 2019-01-30 18:00 | NUR ---
Pt left ama with significant other female. States he is out of here. Notified Gay in OR. States she will notify Dr. Marquez.
== END 2019-01-30 18:00 | disposition left against medical advice (07) | DRG 383 ==
LOC: ED 13:38 → EDHOLD 16:31 → 5E 16:31
PROVIDERS: Nurse Practitioner Family; Student in an Organized Health Care Education/Training Program; ADMIT Internal Medicine
DX: L03.115 Cellulitis of right lower limb (principal); E87.8 Other disorders of electrolyte and fluid balance, not elsewhere classified; R73.9 Hyperglycemia, unspecified; L02.415 Cutaneous abscess of right lower limb; F14.11 Cocaine abuse, in remission; F12.90 Cannabis use, unspecified, uncomplicated; F17.210 Nicotine dependence, cigarettes, uncomplicated; F31.9 Bipolar disorder, unspecified; S80.811A Abrasion, right lower leg, initial encounter; X58.XXXA Exposure to other specified factors, initial encounter; Y92.238 Other place in hospital as the place of occurrence of the external cause; Z86.73 Personal history of transient ischemic attack (TIA), and cerebral infarction without residual deficits; I25.2 Old myocardial infarction; Z86.718 Personal history of other venous thrombosis and embolism; Z95.5 Presence of coronary angioplasty implant and graft; Z88.0 Allergy status to penicillin; Z88.6 Allergy status to analgesic agent; Z88.8 Allergy status to other drugs, medicaments and biological substances; Z88.1 Allergy status to other antibiotic agents; Z82.5 Family history of asthma and other chronic lower respiratory diseases; Z80.1 Family history of malignant neoplasm of trachea, bronchus and lung; Z79.02 Long term (current) use of antithrombotics/antiplatelets; Y93.89 Activity, other specified; Y99.8 Other external cause status

== ENCOUNTER 2022-11-04 16:52 | Emergency (ER) | payer OTHER ==
[~2022-11-04] VITALS: Ht 175.2 cm; Wt 73.9 kg
[~2022-11-04 16:52] MED LIST changes: +PLAVIX75 M1 PO
[2022-11-04 17:08] VITALS: BP 137/83
[2022-11-04] MEDS ORDERED: DILANTIN100 MG PO ×4 (17:09→20:12)
[2022-11-04 18:04] LABS: ALKALINE PHOSPHATASE 132 U/L (46-116); BUN 7 mg/dl (9-23); CHLORIDE 104 mmol/L (98-107); POTASSIUM 4.4 mmol/L (3.4-5.1); SGPT/ALT 93 U/L (10-49); TOTAL PROTEIN 7.6 gm/dL (6.0-8.0)
[2022-11-04 18:06] LABS: BILIRUBIN Negative (Negative); BLOOD Negative (Negative); CLARITY Clear (Clear); COLOR Yellow (Yellow); GLUCOSE Negative (Negative); KETONE Negative (Negative); LEUKO ESTERASE Negative (Negative); NITRITE Negative (Negative); PH 6.5 (4.5-8.0); SPECIFIC GRAVITY 1.015 (1.001-1.030)
[2022-11-04 18:18] LABS: BASO % 0.1 % (0.0-1.0); EOS # 0.1 10*3/uL (0.0-0.4); EOS % 1.1 % (1.0-4.0); HEMATOCRIT 45.2 % (42.0-52.0); LYMPH % 24.4 % (27.0-41.0); MEAN CELL VOLUME 93.4 fl (80.0-94.0); MEAN CORPUSCULAR HGB 32.9 pg (27.0-31.0); MEAN CORPUSCULAR HGB CONC 35.2 g/dl (33.0-37.0); MEAN PLATELET VOLUME 10.6 fl (9.6-12.3); MONO % 12.5 % (3.0-9.0); NEUT % 61.8 % (47.0-73.0); PLATELET COUNT AUTOMATED 225 10*3/uL (130-400); RED BLOOD COUNT 4.84 10*6/uL (4.50-5.90); RED CELL DISTRI WIDTH 12.1 % (0-14.5); WHITE BLOOD COUNT 8.1 10*3/uL (4.8-10.8)
[2022-11-04 18:19] LABS: BACTERIA TRACE; EPITHELIAL CELLS 0-2; RBC 0-2 rbc/hpf (0-2)
== END 2022-11-04 20:44 | disposition home or self-care (01) ==
LOC: ED 16:52
PROVIDERS: Nurse Practitioner Family
DX: R07.89 Other chest pain (principal); R60.0 Localized edema; R51.9 Headache, unspecified; I25.2 Old myocardial infarction; F31.9 Bipolar disorder, unspecified; Z88.0 Allergy status to penicillin; Z88.6 Allergy status to analgesic agent; Z88.1 Allergy status to other antibiotic agents; Z98.890 Other specified postprocedural states; Z95.5 Presence of coronary angioplasty implant and graft; F12.90 Cannabis use, unspecified, uncomplicated; F17.200 Nicotine dependence, unspecified, uncomplicated

== ENCOUNTER 2023-01-31 17:50 | Emergency (ER) | payer OTHER ==
[~2023-01-31] VITALS: Ht 177.8 cm; Wt 74.8 kg
[~2023-01-31 17:50] MED LIST changes: +DILANTIN100 MG PO
[2023-01-31 20:20] LABS: ETHYL ALCOHOL 110.7 mg/dl (<3)
[2023-01-31 20:20] LABS: HEMATOCRIT 45.5 % (42.0-52.0); MEAN CELL VOLUME 91.4 fl (80.0-94.0); MEAN CORPUSCULAR HGB 31.7 pg (27.0-31.0); MEAN CORPUSCULAR HGB CONC 34.7 g/dl (33.0-37.0); MEAN PLATELET VOLUME 10.6 fl (9.6-12.3); PLATELET COUNT AUTOMATED 236 10*3/uL (130-400); RED BLOOD COUNT 4.98 10*6/uL (4.50-5.90); RED CELL DISTRI WIDTH 12.4 % (0-14.5)
[2023-01-31 20:21] LABS: MANUAL DIFF REFLEX YES
[2023-01-31 20:21] LABS: ALKALINE PHOSPHATASE 105 U/L (46-116); BUN 9 mg/dl (9-23); CHLORIDE 107 mmol/L (98-107); POTASSIUM 3.7 mmol/L (3.4-5.1); SGPT/ALT 213 U/L (5-49); TOTAL PROTEIN 7.7 gm/dL (6.0-8.0)
[2023-01-31 20:38] LABS: TOTAL CELLS COUNTED 100 #CELLS
[2023-01-31 20:42] LABS: OVALOCYTES FEW; PLATELET SUFFICIENCY NORMAL (NORMAL)
[2023-02-01 00:02] LABS: BILIRUBIN Negative (Negative); BLOOD Negative (Negative); CLARITY Clear (Clear); COLOR Yellow (Yellow); GLUCOSE Negative (Negative); KETONE Negative (Negative); LEUKO ESTERASE Negative (Negative); NITRITE Negative (Negative); PH 5.5 (4.5-8.0); SPECIFIC GRAVITY 1.015 (1.001-1.030); UROBILINOGEN 0.2 E.U./dl (0.0-1.0)
[2023-02-01 00:09] LABS: URINE AMPHETAMINES Negative (1000ng/ml); URINE BARBITURATES Negative (200ng/ml); URINE BENZODIAZEPINES Negative (200ng/ml); URINE CANNABINOIDS (THC) Positive (50ng/ml); URINE COCAINE Negative (300ng/ml); URINE METHADONE Negative (300ng/ml); URINE OPIATES Negative (300ng/ml); URINE PHENCYCLIDINE Negative (25ng/ml)
[2023-02-01 00:31] LABS: HEMATOCRIT 46.3 % (42.0-52.0); MEAN CELL VOLUME 92.2 fl (80.0-94.0); MEAN CORPUSCULAR HGB 31.9 pg (27.0-31.0); MEAN CORPUSCULAR HGB CONC 34.6 g/dl (33.0-37.0); MEAN PLATELET VOLUME 10.4 fl (9.6-12.3); PLATELET COUNT AUTOMATED 234 10*3/uL (130-400); RED BLOOD COUNT 5.02 10*6/uL (4.50-5.90); RED CELL DISTRI WIDTH 12.6 % (0-14.5); WHITE BLOOD COUNT 19.9 10*3/uL (4.8-10.8)
[2023-02-01 00:35] VITALS: BP 142/94
[2023-02-01 00:36] LABS: MANUAL DIFF REFLEX YES
[2023-02-01 01:02] LABS: TOTAL CELLS COUNTED 100 #CELLS
[2023-02-01 01:03] LABS: PLATELET SUFFICIENCY NORMAL (NORMAL)
[2023-02-01] MEDS ORDERED: HYDROCODONE-AC1 EAC1 PO ×2 (01:45→13:11)
== END 2023-02-01 02:27 | disposition home or self-care (01) ==
LOC: ED 17:50
PROVIDERS: Family Medicine; Internal Medicine
DX: S43.101A Unspecified dislocation of right acromioclavicular joint, initial encounter (principal); M25.551 Pain in right hip; M25.531 Pain in right wrist; I25.2 Old myocardial infarction; F31.9 Bipolar disorder, unspecified; R10.2 Pelvic and perineal pain; R79.89 Other specified abnormal findings of blood chemistry; E87.20 Acidosis, unspecified; D72.829 Elevated white blood cell count, unspecified; F10.129 Alcohol abuse with intoxication, unspecified; Z88.0 Allergy status to penicillin; Z88.6 Allergy status to analgesic agent; Z88.1 Allergy status to other antibiotic agents; Z88.8 Allergy status to other drugs, medicaments and biological substances; Z98.890 Other specified postprocedural states; F17.210 Nicotine dependence, cigarettes, uncomplicated; Y90.0 Blood alcohol level of less than 20 mg/100 ml; V89.2XXA Person injured in unspecified motor-vehicle accident, traffic, initial encounter; Y93.89 Activity, other specified; Y92.410 Unspecified street and highway as the place of occurrence of the external cause; Y99.8 Other external cause status

== ENCOUNTER → 2023-04-12 | Outpatient (CLI) | payer OTHER ==
[~2023-04-12] MED LIST changes: +HYDROCODONE-AC1 EAC1 PO; +PERCOCET 5-3251 EACH PO
== END | disposition home or self-care (01) ==
LOC: ORTHO 10:52
PROVIDERS: ATTEND Orthopaedic Surgery
DX: S43.121D Dislocation of right acromioclavicular joint, 100%-200% displacement, subsequent encounter (principal); M19.011 Primary osteoarthritis, right shoulder; M25.811 Other specified joint disorders, right shoulder; X58.XXXD Exposure to other specified factors, subsequent encounter

== ENCOUNTER → 2023-05-27 | Outpatient (CLI) | payer OTHER | END | disposition home or self-care (01) | LOC: ORTHO 00:52 | PROVIDERS: ATTEND Orthopaedic Surgery | DX: S43.121D Dislocation of right acromioclavicular joint, 100%-200% displacement, subsequent encounter (principal); W19.XXXD Unspecified fall, subsequent encounter ==

== ENCOUNTER 2023-07-11 04:19 | Emergency (ER) | payer OTHER | END 2023-07-11 04:28 | disposition left against medical advice (07) | LOC: ED 04:19 | DX: F22 Delusional disorders (principal); F17.210 Nicotine dependence, cigarettes, uncomplicated; Z88.0 Allergy status to penicillin; Z88.6 Allergy status to analgesic agent; Z88.1 Allergy status to other antibiotic agents; Z88.8 Allergy status to other drugs, medicaments and biological substances; Z79.899 Other long term (current) drug therapy; Z98.890 Other specified postprocedural states; Z95.5 Presence of coronary angioplasty implant and graft ==

== ENCOUNTER 2024-06-06 14:36 | Emergency (ER) | payer OTHER ==
[~2024-06-06] VITALS: Wt 77.1 kg
[2024-06-06 14:38] VITALS: BP 155/97
[2024-06-06] MEDS ORDERED: diazePAM 10 MG/2 ML SYR IM ONE (14:40)
[2024-06-06] MEDS ORDERED: Haloperidol Lactate 5 MG/ML AMP IM ONE (14:40)
== END 2024-06-06 16:30 | disposition home or self-care (01) ==
LOC: ED 14:36
DX: F19.10 Other psychoactive substance abuse, uncomplicated (principal); F29 Unspecified psychosis not due to a substance or known physiological condition; F31.9 Bipolar disorder, unspecified; F17.210 Nicotine dependence, cigarettes, uncomplicated; Z88.0 Allergy status to penicillin; Z88.6 Allergy status to analgesic agent; Z88.8 Allergy status to other drugs, medicaments and biological substances; Z88.1 Allergy status to other antibiotic agents; Z98.890 Other specified postprocedural states; Z95.5 Presence of coronary angioplasty implant and graft